=== PATIENT | male | born 1940 | race Caucasian/White ===

== ENCOUNTER → 2020-11-07 09:14 | Outpatient (CLI) | payer MEDICARE, BC, SELFPAY ==
--- NOTE | 2020-11-07 | CA_ITS ---
APPROVED REPORT Left Lower Extremity Venous Study for DVT. Skid Worker: Adriana Leach RVT Indications Lower Extremity Edema: Left EDEMA LLE X SEVERAL DAYS Vein Imaging CFV (L): compressive, spontaneous, phasic, augmentation FEM (L): compressive, spontaneous, phasic, augmentation POP (L): compressive, spontaneous, phasic, augmentation PTV (L): Compressible GSV (L): Compressible Peroneals (L):Compressible GAS (L): Compressible Findings Study suggests no evidence of DVT of the left lower extremity. Study suggests no evidence of SVT of the left lower extremity. Conclusion Study suggests no evidence of DVT of the left lower extremity. Study suggests no evidence of SVT of the left lower extremity. Critical Notification Date: 11/07/2020 Time: 10:00 Physician Name: Dr Perez Electronically signed by : Melchor Beckman MD 11/07/2020 17:43:30
== END ==
PROVIDERS: PCP Internal Medicine Adolescent Medicine; Visit Provider Internal Medicine Adolescent Medicine
DX: M79.605 Pain in left leg (principal); M79.89 Other specified soft tissue disorders
CPT/HCPCS: 93971

== ENCOUNTER → 2022-03-19 10:30 | Outpatient (CLI) | payer MEDICARE, BC, SELFPAY ==
--- NOTE | 2022-03-19 10:39 | FL_ITS ---
FINAL REPORT CLINICAL HISTORY: 1.25 FLUORO TIME Chronic cough FINDINGS: MODIFIED BARIUM SWALLOW HISTORY: Dysphagia. FINDINGS: Fluoroscopy was provided for the speech pathologist to evaluate the swallowing mechanism. The patient was given several different consistencies of barium while the swallow was visualized fluoroscopically. The report of the speech pathologist should be consulted prior to making dietary decisions. 9 cine runs were saved. FLUOROSCOPY TIME: 1 minutes 25 seconds IMPRESSION: Modified barium swallow under fluoroscopic guidance. Please see speech pathologist's report for further details and dietary recommendations. Reviewed, Interpreted and Dictated by Stacie Pardo MD Transcribed by Jennifer Caceres PA-C Authenticated by Stacie Pardo MD on 03/21/2022 10:04:[address] [facility]
--- NOTE | 2022-03-19 13:53 | HMH.SLMBS2 ---
Speech & Language Evaluation Speech/Language Mod Barium Swallow Start: 03/19/22 12:42 Freq: once Status: Complete Protocol: Document 03/19/22 12:42 MICHAEL (Rec: 03/19/22 13:53 MARCUSEIN [id number]) General Information General Current Food Consistency Regular,Thin Liquids Dentition Poor Dentition Oxygen Status Room Air Facial Symmetry Symmetrical Ability to Follow Directions Excellent Communication Ability No Impairment MBS Recommendations Diet Dietary Recommendations Regular,Thin Liquids Treatment/Strategies Strategy/Precaution Recommend Sitting Upright (90 deg),Small Bites and Sips Mod Barium Swallow Impressions Summary and Impressions Oral Phase Impression Minimal Impairment Oral Phase Summary Adequate mastication and oral manipulation noted throughout the study. Mild oral residue noted after each bolus, which patient clears independently with a secondary swallow. Pharyngeal Phase Impression Minimal Impairment Pharyngeal Phase Summary Transient penetration noted intermittently throughout the study. Penetrated material cleared the laryngeal vestibule upon completion of the swallow. Mild diffuse pharyngeal residue noted secondary to oral residue spilling into the pharynnx after the swallow. Speech/Language MBS Assessment/Goals/Plan Assessment Date of Evaluation: 03/19/22 Evaluation Type Initial Certification Assessment/Problems Dysphagia Does Patient Qualify for Service No Qualify/Failure Comment Based on the results of the MBSS, patient has a grossly functional swallow and requires no further skilled ST services at this time. Recommendations PHYSICIAN CERTIFICATION: The specified therapy services are required, authorized, and reviewed every 30 days. Diet Recommendations Normal Liquid Type Recommendations Normal/Thin SL Swallow Guidelines Standard Aspiration Prec. Dysphagia Swallow Precautions/Strategies Sitting Upright (90 deg),Small Bites and Sips Place Food on Either side of Mouth Plan Pt/Guardian verbally ack understanding Yes of dx/prognosis/goals Pt/Guardian verbally ack understanding Yes of/consent to tx prog G -code Required
== END ==
PROVIDERS: PCP Internal Medicine Adolescent Medicine; Visit Provider Internal Medicine Adolescent Medicine
DX: K58.9 Irritable bowel syndrome, unspecified (principal); R05.3 Chronic cough
CPT/HCPCS: 70371; 92611